=== PATIENT | male | born 1965 | race Caucasian/White ===

== ENCOUNTER 2023-06-19 21:53 | Emergency (ER) | payer OTHER, SELFPAY ==
[2023-06-19] VITALS (8 sets, daily range): BP systolic 126–157; BP diastolic 76–85; PULSE 60–64; RESP 12–19; TEMP 36.3; O2SAT 95–99
[2023-06-19 22:28] LABS: Glucose Point of Care > 500 mg/dl (65-105)
[2023-06-19 23:12] LABS: Basophils Absolute Auto 0.1 K/mm3 (0.0-0.1); Basophils Percent Auto 0.7 % (0.2-1.2); Eosinophils Absolute Auto 0.3 K/mm3 (0-0.3); Eosinophils Percent Auto 3.9 % (0-4.4); Hematocrit 42.4 % (42.0-52.0); Hemoglobin 15.1 g/dL (14.0-18.0); Immature Granulocyte Absolute 0.02 K/mm3 (0.00-0.031); Immature Granulocyte Percent A 0.3 % (0-0.5); Lymphocytes Absolute Auto 2.62 K/mm3 (0.9-3.2); Mean Corpuscular HGB Conc 35.6 g/dl (32-36); Mean Corpuscular Hemoglobin 30.9 pg (26-34); Mean Corpuscular Volume 86.7 fl (80-100); Mean Platelet Volume 10.7 fl (7.4-10.4); Monocytes Absolute Auto 0.6 K/mm3 (0.1-0.6); Monocytes Percent Auto 8.5 % (2.6-8.5); Neutrophils Absolute Auto 3.9 K/mm3 (1.3-6.7); Neutrophils Percent Auto 51.6 % (45.5-73.1); Platelet Count Result 235 k/mm3 (150-375); Red Blood Count 4.89 M/mm3 (4.6-6.20); Red Cell Distribution Width 12.1 % (11.5-14.5); White Blood Count 7.5 K/mm3 (4.5-10.0)
[2023-06-19 23:16] LABS: Appearance Urine Clear (Clear); Bacteria Urine None Seen /hpf; Bilirubin Urine Negative (Negative); Blood Urine 1+ (Negative); Color Urine Yellow (Yellow); Glucose Urine UA 3+ mg/dL (Negative); Ketones Urine Negative (Negative); Leukocyte Esterase Ur Negative LEU/UL (Negative); Nitrate Urine Negative (Negative); Non Pathogenic Casts 0-2; Protein Urine Negative (Negative); RBC Urine 0-2 /hpf (0-2); Specific Grav Ur 1.035 (1.001-1.035); Squamous Epithelial Cell Urine None seen /hpf (Few); WBC Urine 0-5 /hpf; pH Urine 5.5 (5.0-9.0)
[2023-06-19 23:23] LABS: Add Urine Microscopic? YES
[2023-06-19 23:24] LABS: Hemoglobin A1C 10.4 % (<5.7)
[2023-06-19 23:32] LABS: Beta-Hydroxybutyrate/Acetoacetate 0.04 mmol/L (0.02-0.27)
[2023-06-19 23:47] LABS: Alanine Aminotransferase 28 U/L (6-50); Albumin Level 3.9 g/dL (3.5-5.1); Alkaline Phosphatase 84 U/L (38-126); Anion Gap 9 mmol/L (8-16); Aspartate Amino Transferase 26 U/L (17-59); Bilirubin,Total 0.7 mg/dL (0.2-1.3); Blood Urea Nitrogen 17 mg/dL (9-20); Calcium 8.9 mg/dL (8.4-10.2); Carbon Dioxide 24 mmol/L (22-30); Chloride 96 mmol/L (98-107); Estimated CRCL calculation 88 ml/min; Estimated Glomerular Filt Rate > 60; Glucose 522 mg/dL (65-110); Magnesium 1.8 mg/dL (1.6-2.3); Phosphorus 3.5 mg/dL (2.5-4.5); Potassium 4.5 mmol/L (3.4-5.0); Sodium 129 mmol/L (137-145)
[2023-06-20] VITALS (17 sets, daily range): BP systolic 122–170; BP diastolic 80–107; PULSE 58–79; RESP 13–19; O2SAT 96–100
--- NOTE | 2023-06-20 00:19 | ED.RECABL ---
HPI - Recheck/Abnormal Lab/Rx General Chief Complaint: Recheck/Abnormal Lab/Rx Stated Complaint: high blood sugar Time Seen by Provider: 06/19/23 22:28 Source: patient Mode of arrival: ambulatory Limitations: no limitations History of Present Illness HPI narrative: Patient is a 58-year-old male who presents to the ED with report of elevated blood sugar. Patient reports a history of Type 2 diabetes and states he has previously been on metformin 1000 mg b.i.d.. He quit taking this around 3 months ago. He states he ran out of the medication and it was ?a hassle? to get into his primary care doctor so he just stopped taking the medicine. He does not routinely monitor his blood sugars. He found an old blood glucose machine today and decided to check his blood sugar. It was greater than 500. He then prompted here. Patient has not tried contacting his primary. He does report recent polyuria and polydipsia. Denies abdominal pain, nausea, vomiting, fevers, weight loss/gain. Related Data Allergies Allergy/AdvReac Type Severity Reaction Status Date / Time No Known Allergies Allergy Unverified 04/06/15 18:03 Review of Systems Review of Systems: CONSTITUTIONAL: Denies fever, chills, or sweats. ENT: See HPI. CARDIOVASCULAR: Denies chest pain. RESPIRATORY: Denies dyspnea. GASTROINTESTINAL: Denies abdominal pain, nausea, vomiting, or diarrhea. GENITOURINARY: See HPI. SKIN: Denies rash or itching. MUSCULOSKELETAL: Denies back pain, joint pain, or myalgia. All systems reviewed & are unremarkable except as noted in HPI and below Exam Narrative: GENERAL: Well appearing, well-nourished, non-toxic, in no acute distress. HEAD: Normocephalic, atraumatic. NECK: Supple. No adenopathy, no masses. RESPIRATORY: Airway patent, respirations nonlabored. Clear to auscultation bilaterally, no rales, rhonchi, wheezing. CARDIOVASCULAR: Regular rate and rhythm without murmurs, rubs, or gallops. Radial pulses 2+ and equal bilaterally. ABDOMINAL: Soft, nontender, nondistended, no hepatosplenomegaly. Normoactive BS. MUSCULOSKELETAL: Moves all extremities. No gross deformities. SKIN: Warm, dry, normal color. No rashes. NEURO: A&O X3. Speech clear. Cranial nerves II-XII grossly intact. Steady gait. No ataxic movements. PSYCHIATRIC: Appropriate mood and affect. Normal interaction. Course Vital Signs Vital signs: Vital Signs Temperature 97.4 F L 06/19/23 22:18 Pulse Rate 63 06/19/23 22:18 Respiratory Rate 18 06/19/23 22:18 Blood Pressure 140/81 06/19/23 22:18 Pulse Oximetry 98 06/19/23 22:18 Oxygen Delivery Room Air 06/19/23 22:18 Temperature 97.4 F L 06/19/23 22:18 Pulse Rate 68 06/20/23 01:16 Respiratory Rate 19 06/20/23 01:16 Blood Pressure 122/107 H 06/20/23 01:16 Pulse Oximetry 97 06/20/23 01:16 Oxygen Delivery Room Air 06/19/23 22:18 MDM - Recheck/Abnormal Lab/Rx MDM Narrative Medical decision making narrative: Patient presented to ED with report of elevated BG. Stop taking his metformin by himself 3 months ago. Randomly decided to check his blood sugar today. Patient's vitals stable upon arrival. No acute distress. Bedside blood glucose upon arrival greater than 500. DKA labs ordered. Labs reassuring, no evidence of DKA at this time. Blood glucose 522 on CMP. No anion gap. Normal bicarb. Beta hydroxybutyrate within normal limits. No ketones on UA. Hemoglobin A1c 10.4%. Patient's diabetes has been uncontrolled for quite some time. He states he the last time he had his A1c checked it was in the 8 range. Again does not routinely check his blood sugars, unsure of baseline. Patient given 2 L of fluid in the ED. Blood sugar improved into the lower 400s. Will restart patient on his metformin and advised extremely close follow-up with primary care doctor. Given additional PCPs information for sooner f/u. I had a long conversation with patient about importance of medication compliance, s
[2023-06-20] MEDS: SODIUM CHLORIDE 0.9% IV 1,000 ML 999 ML IV CONT ×2 (00:22)
[2023-06-20 01:49] LABS: Glucose Point of Care 415 mg/dl (65-105)
== END 2023-06-20 02:19 | disposition home or self-care (01) ==
PROVIDERS: Emergency Provider Physician Assistant; PCP Physician Assistant
DX: E11.65 Type 2 diabetes mellitus with hyperglycemia (principal); T38.3X6A Underdosing of insulin and oral hypoglycemic [antidiabetic] drugs, initial encounter; Z91.128 Patient's intentional underdosing of medication regimen for other reason
CPT/HCPCS: 36415; 80053; 81001; 82010; 82948; 83036; 83735; 84100; 85025; 96360; 99283; J7030